=== PATIENT | female | born 1950 | race Caucasian/White ===

== ENCOUNTER 2020-04-01 07:01 | Day surgery (SDC) | payer MEDICARE, MEDICAID ==
[~2020-04-01] VITALS: Ht 167.6 cm; Wt 94.0 kg
[2020-04-01 07:33] VITALS: BP 145/82
[2020-04-01] MEDS ORDERED: CEFAZOLIN PMX 1GM/50ML 50 ML IV STA (07:38)
[2020-04-01] MEDS ORDERED: SODIUM CHLORIDE 0.9% 1,000 ML IV SCH (07:38)
[2020-04-01] MEDS ORDERED: LIDOCAINE 1%, 20ML ONE (08:38)
[2020-04-01] MEDS ORDERED: FENTANYL PF 100 MCG/2ML ONE (08:47)
[2020-04-01] MEDS ORDERED: MIDAZOLAM 1 MG/ML, 5ML ONE (08:47)
[2020-04-01] MEDS ORDERED: NALOXONE 1 MG/ML, 2ML ONE (08:48)
[2020-04-01] MEDS ORDERED: FLUMAZENIL 0.1 MG/1 ML, 5ML ONE (08:48)
[2020-04-01] MEDS ORDERED: LIDOCAINE 1%, 10ML ONE (09:50)
== END 2020-04-01 11:35 | disposition home or self-care (01) ==
LOC: OUT 07:01
PROVIDERS: ATTEND Internal Medicine Hematology & Oncology
DX: D48.5 Neoplasm of uncertain behavior of skin (principal); E53.8 Deficiency of other specified B group vitamins; R16.1 Splenomegaly, not elsewhere classified; D61.818 Other pancytopenia; Z79.899 Other long term (current) drug therapy; Z86.010 Personal history of colon polyps
CPT/HCPCS: 36561; 76937; 77001; 99156; 99157; C1788; C1894; J0690; J1642; J2250; J3010; J7030; 36563; J2310